=== PATIENT | male | born 1950 | race Caucasian/White ===

== ENCOUNTER 2016-04-26 08:00 | Emergency (ER) | payer OTHER ==
--- NOTE | 2016-04-26 08:08 | ED Physician Documentation ---
General Adult - HISTORIAN Historian: patient - HPI Stated Complaint: L rib pain Chief Complaint: General Adult Onset: days ago (1) Severity: moderate Further Comments: yes (Pt is a 65 yo male who fell yesterday and injured his L chest. Pt uses a walker and fell getting up to go to bathroom. Pain worse with deep breath.) - ROS CONST: no problems EYES/ENT: none CVS/RESP: none GI/: none MS/SKIN/LYMPH: other (L rib pain) - PAST HX Past History: other (R knee surgery x 3.) Allergies/Adverse Reactions: Allergies Allergy/AdvReac Type Severity Reaction Status Date / Time No Known Drug Allergies Allergy Verified 04/26/16 08:08 Home Medications: Ambulatory Orders Medication Instructions Recorded NK [NK] 04/26/16 - SOCIAL HX Smoking History: non-smoker - FAMILY HX Family History: No - REVIEWED ASSESSMENTS Nursing Assessment Reviewed: Yes Vitals Reviewed: Yes Progress - Progress Progress: Rx Percocet (5/325). Take one or two every 4 to 6 hrs as needed for pain. - EKG/XRAY/CT XRAY: chest (L 9th lateral rib fracture.) General Adult Physical Exam - PHYSICAL EXAM GENERAL APPEARANCE: moderate distress EENT: eye inspection normal NECK: normal inspection, supple RESPIRATORY: other (pain with deep breath; L lower rib pain with palpation) CVS: reg rate & rhythm, heart sounds normal ABDOMEN: soft, no organomegaly, normal bowel sounds BACK: normal inspection, no CVA tenderness SKIN: warm/dry, normal color EXTREMITIES: non-tender, normal range of motion, no evidence of injury NEURO: oriented X3, motor nml, sensation nml Discharge Clincal Impression: Rib fracture Qualifiers: Encounter type: initial encounter Rib fracture type: single rib Fracture type: closed Laterality: left Qualified Code(s): S22.32XA - Fracture of one rib, left side, initial encounter for closed fracture Referrals: Kamla Uriostegui MD [Primary Care Provider] - Home Medications: Ambulatory Orders NK [NK] 04/26/16 Condition: Good Disposition: HOME, SELF-CARE Decision to Admit: NO Decision Time: 09:07
[2016-04-26 09:17] VITALS: BP 148/68
--- NOTE | 2016-04-26 09:49 | Diagnostic Imaging Report ---
[facility] [address] [facility].[address] [address] Report Submission Date: Apr 26, 2016 9:02:40 AM PRODUCT INSPECTION SUPERVISOR Patient Study Name: LENNIE NIEVES Date: Apr 26, 2016 8:19:25 AM PRODUCT INSPECTION SUPERVISOR Modality Type: CR Gender: M Description: CHEST : 50 Institution: [facility] Physician: OLYA KEITH Single view chest and left rib series History: Mid rib pain after fall yesterday Findings: The lungs are clear. No pleural effusion or pneumothorax observed. Heart size and pulmonary vascularity are normal. A minimally displaced acute left lateral 9th rib fracture is observed. Impression: Acute left lateral 9th rib fracture. Electronically signed on Apr 26, 2016 9:02:40 AM PRODUCT INSPECTION SUPERVISOR by: Uli BRISCOE
== END 2016-04-26 09:16 | disposition home or self-care (01) ==
LOC: ED 08:00
DX: S22.32XA Fracture of one rib, left side, initial encounter for closed fracture (principal); W19.XXXA Unspecified fall, initial encounter; Y93.9 Activity, unspecified; Y99.9 Unspecified external cause status
CPT/HCPCS: 71101; 99283

== ENCOUNTER 2017-02-17 08:59 | Outpatient (CLI) | payer OTHER | END 2017-02-17 10:00 | LOC: LAB 08:59 | PROVIDERS: ATTEND Family Medicine | DX: Z12.5 Encounter for screening for malignant neoplasm of prostate (principal) | CPT/HCPCS: 36415; G0103 ==

== ENCOUNTER 2017-10-22 08:52 | Outpatient (CLI) | payer OTHER | END 2017-10-22 12:36 | LOC: LABRHC 08:52 | PROVIDERS: ATTEND Physician Assistant | DX: R31.9 Hematuria, unspecified (principal) | CPT/HCPCS: 87086 ==

== ENCOUNTER 2018-02-21 08:46 | Outpatient (CLI) | payer OTHER ==
--- NOTE | 2018-02-21 09:42 | Diagnostic Imaging Report ---
GABBY XIAO [facility] [address] [facility] [address] [address] Report Submission Date: Feb 21, 2018 9:14:46 AM COOKING TEACHER Patient Study Name: LENNIE NIEVES Date: Feb 21, 2018 8:45:25 AM COOKING TEACHER Modality Type: DX Gender: M Description: SHOULDER : 50 Institution: [facility] Physician: GABBY XIAO Examination: Plain film right shoulder History: RIGHT SHOULDER PAIN POST FALL 1 WEEK AGO. NO PREVIOUS INJURIES. (Hx) Comparison exams: None provided Findings: 4 views of the right shoulder demonstrate normal cortical margins. No evidence for fracture or dislocation. Acromioclavicular joint degenerative spurring. No soft tissue abnormality Impression: Acromioclavicular joint degenerative spurring. No fracture Electronically signed on Feb 21, 2018 9:14:46 AM COOKING TEACHER by: Mejia BRISCOE
== END 2018-02-21 08:47 ==
LOC: RAD 08:46
PROVIDERS: ATTEND Family Medicine
DX: M25.511 Pain in right shoulder (principal)
CPT/HCPCS: 73030

== ENCOUNTER 2018-03-08 09:04 | Outpatient (CLI) | payer OTHER ==
--- NOTE | 2018-03-08 10:18 | Diagnostic Imaging Report ---
GABBY XIAO [facility] [address] [facility].[address] [address] Report Submission Date: Mar 08, 2018 9:52:04 AM COMPUTER AIDE Patient Study Name: LENNIE NIEVES Date: Mar 08, 2018 9:16:13 AM COMPUTER AIDE Modality Type: US Gender: M Description: US AAA : 50 Institution: [facility] Physician: GABBY XIAO Examination: Ultrasound aorta History: Evaluate for aneurysm Comparison exams: None available Findings: Proximal aorta measures 2.6 cm maximally. Mid aorta measures 2.0 cm maximally. Distal aorta measures 1.9 cm maximally. Iliac vessels measure 0.7 cm. No peripheral calcification or thrombus. Impression: No evidence for abdominal aortic aneurysm Electronically signed on Mar 08, 2018 9:52:04 AM COMPUTER AIDE by: Mejia BRISCOE
== END 2018-03-08 09:05 ==
LOC: RAD 09:04
PROVIDERS: ATTEND Family Medicine
DX: R73.9 Hyperglycemia, unspecified (principal); Z12.5 Encounter for screening for malignant neoplasm of prostate; Z13.1 Encounter for screening for diabetes mellitus; Z82.49 Family history of ischemic heart disease and other diseases of the circulatory system
CPT/HCPCS: 36415; 83036; G0103

== ENCOUNTER 2019-03-10 08:28 | Outpatient (CLI) | payer OTHER | END 2019-03-10 08:33 | LOC: LAB 08:28 | PROVIDERS: ATTEND Family Medicine | DX: Z12.5 Encounter for screening for malignant neoplasm of prostate (principal); R73.9 Hyperglycemia, unspecified | CPT/HCPCS: 36415; 83036; 84153 ==